=== PATIENT | female | born 1980 | race Caucasian/White ===

== ENCOUNTER 2022-06-20 13:44 | Outpatient (CLI) | payer BC, SELFPAY ==
--- NOTE | 2022-06-20 13:45 | CRLHL7_ITS ---
For Patients: As a result of the Century Cures Act, medical imaging exams and procedure reports are released immediately into your electronic medical record. You may view this report before your referring provider. If you have questions, please contact your health care provider. INDICATION: Low back pain. COMPARISON: None. TECHNIQUE: Sagittal T1, T2, and STIR sequences. Axial T1 and T2 weighted sequences. FINDINGS: Trace degenerative retrolisthesis of L4 on L5 measures approximately 4 mm. Otherwise, normal alignment. No fractures. No vertebral body loss of height. No evidence injury. No suspicious osseous lesions. Normal conus terminates at L1. T12-L1 L1-2 L2-3: No spinal canal or neural foraminal narrowing. L3-4: Mild annular bulge. No narrowing of spinal canal. No neural foraminal narrowing. L4-5: Grade 1 retrolisthesis. Disc degeneration and posterior disc herniation. No narrowing of spinal canal. No neural foraminal narrowing. L5-S1: No narrowing of spinal canal. No impingement of the traversing S1 nerve roots. No neural foraminal narrowing. Normal visualized SI joints. Normal paraspinal soft tissues. IMPRESSION: 1. Trace degenerative retrolisthesis of L4 on L5. Otherwise normal alignment. No fractures 2. Lumbar spondylosis. 3. At L4-5, grade 1 retrolisthesis. Disc degeneration and posterior disc herniation. No narrowing of the spinal canal. No neural foraminal narrowing. 4. No spinal canal or neural foraminal narrowing at the remaining levels Dictated by Elieser Estevez MD @ 06/21/2022 10:15:07 AM (Electronically Signed)
== END 2022-06-20 13:45 | disposition home or self-care (01) ==
PROVIDERS: PCP Family Medicine; Visit Provider Family Medicine
DX: M54.50 Low back pain, unspecified (principal); M47.816 Spondylosis without myelopathy or radiculopathy, lumbar region; M51.36 Other intervertebral disc degeneration, lumbar region
CPT/HCPCS: 72148

== ENCOUNTER 2022-08-20 12:27 | Outpatient (CLI) | payer BC, SELFPAY ==
[2022-08-20 14:09] LABS: Vitamin D 25 Hydroxy* 51 ng/mL (30-80)
== END 2022-08-20 12:28 | disposition home or self-care (01) ==
PROVIDERS: PCP Family Medicine; Visit Provider Registered Nurse
DX: Z01.419 Encounter for gynecological examination (general) (routine) without abnormal findings (principal); R53.83 Other fatigue; E03.9 Hypothyroidism, unspecified
CPT/HCPCS: 82306; 84443

== ENCOUNTER 2022-11-27 12:22 | Outpatient (CLI) | payer BC, SELFPAY ==
--- OUTSIDE RECORDS SUMMARY | 2022-11-27 12:24 | XMS_ITS ---
:1980 Author Support Name Relationship Address Phone LUIS SIMMONS Unavailable [address] [phone] [place] [address] yayo simmons Unavailable [address] [phone] [place] [address] PROBLEMS Type Condition ICD9-CM Code ZBP16-EV Onset Condition SNOMED Code Code Dates Status Problem History of anemia Z86.2 Active 27 7657200 Problem DDD (degenerative M51.36 Active 77 929984 disc disease), lumbar Problem Retrolisthesis of M43.10 Active 20 0103409 vertebrae Problem Stress F43.9 Active 28306439 Problem Vitamin D E55.9 Active 16312936 deficiency Problem Lumbar spondylosis M47.816 Active 2 35063744 Problem Hypothyroid E03.9 Active 11151982 Problem Hypothyroidism, E03.9 Active unspecified type Problem Chronic fatigue R53.82 Active 5270 2002 ALLERGIES Substance Reaction Event Type Date Status sulfa drugs Unknown Non Drug Allergy Nov, Active ENCOUNTERS Encounter Location Date Diagnosis [facility] [place] [address] [facility] Nov, Ilioti bial band syndrome of right [address] [place] [address] side M7 6.31 and DDD (degenerative disc disease), l umbar M51.36 [facility] [place] [address] [facility] Oct, [address] [place] [address] [facility] [place] [address] [facility] Sep, [address] [place] [address] [facility] [place] [address] [facility] Sep, Chroni c fatigue R53.82 ; [address] [place] [address] Hypothy roidism, unspecified type E03.9 ; Arthralg ia, unspecified joint M25.50 ; S tress F43.9 ; Vitamin D defici ency E55.9 and History of anemi a Z86.2 [facility] [place] [address] [facility] Sep, Hypoth yroid E03.9 [address] [place] [address] [facility] [place] [address] [facility] Sep, Ilioti bial band syndrome of right [address] [place] [address] side M7 6.31 [facility] [place] [address] [facility] Sep, DDD (d egenerative disc disease), [address] [place] [address] lumbar M51.36 and Iliotibial band syndrome of righ t side M76.31 [facility] [place] [address] [facility] Jul, [address] [place] [address] [facility] [place] [address] [facility] Jul, [address] [place] [address] [facility] [place] [address] [facility] Jul, [address] [place] [address] [facility] [place] [address] [facility] Jul, [address] [place] [address] [facility] [place] [address] [facility] Jul, [address] [place] [address] [facility] [place] [address] [facility] Jul, [address] [place] [address] [facility] [place] [address] [facility] Jul, DDD (d egenerative disc disease), [address] [place] [address] lumbar M51.36 ; Lumbar spondylosis M47. 816 and Retrolisthesis o f vertebrae M43.10 [facility] [place] [address] [facility] Jul, DDD (d egenerative disc disease), [address] [place] [address] lumbar M51.36 [facility] [place] [address] [facility] Jul, [address] [place] [address] [facility] [place] [address] [facility] Jul, DDD (d egenerative disc disease), [address] [place] [address] lumbar M51.36 and Post procedure discomfort G89.1 [address] [facility] [place] [address] [facility] Jul, [address] [place] [address] [facility] [place] [address] [facility] [address] [facility] Jul, Retrol isthesis of vertebrae [address] [place] [address] M43.10 ; Lumbar spondylosis M47.816 and DDD (degenerative disc disease), l umbar M51.36 [facility] [place] [address] [facility] Jul, [address] [place] [address] [facility] [place] [address] [facility] [address] [facility] Jun, [address] [place] [address] [facility] [place] [address] [facility] [address] [facility] Jun, [address] [place] [address] [facility] [place] [address] [facility] Jun, [address] [place] [address] [facility] [place] [address] [facility] Jun, Lumbar pain M54.50 [address] [place] [address] IMMUNIZATIONS Vaccine Route Administration Date Status IM Thyroid Boost IM Intramuscular Sep 13, 2022 Administered SOCIAL HISTORY Never Assessed REASON FOR REFERRAL Reason please evaluate and treat pa tients low back pain Referral Organization [facility] Referring Provider First Name PILO Referring Provider Last Name JOSE Referring Provider Specialty Anesthesiology Referring Provider Referring Provider email [email or web address] Referred Provider Physical Therapy,Any Clinic Referred Provider Specialty Physical Therapist FUNCTIONAL STATUS PLAN OF CARE Activity Details Follow Up prn Reason:prp or trigger po int Referral please evaluate and treat pa tients low back pain, Any Clinic Physical Therapy Future Test DHEA SULFATE 20220916 Future Test VITAMIN B12 20220916 Future Test CORTISOL, TOTAL 20220916 Future Test VITAMIN B6 20220916 Future Test TESTOSTERONE,FR(DIALYSIS) AN D TOTAL(LC/MS/MS) 20220916 Future Test T3 REVERSE, LC/MS/MS 20220905 2 Future Test T3, FREE 20220916 Future Test IODINE, SERUM/PLASMA 20220905 2 Future Test T4, FREE 20220916 Future Test IRON, TIBC AND FERRITIN PANE L 20220916 Future Test THYROGLOBULIN ANTIBODIES Future Test THYROID PEROXIDASE ANTIBODIE S 20220916 VITAL SIGNS Temperature 97.5 degrees Fahrenheit 2022-09-13 Height 65 in 2022-09-13 Weight 185 lbs 2022-09-13 BMI 30.78 kg/m2 2022-09-13 Blood pressure systolic 120 mm Hg 2022-09-13 Blood pressure diastolic 80 mm Hg 2022-09-13 MEDICATIONS Medication Instructions Dosage Frequency Start End Duration Statu s Date Date Vitamin D3 125 as directed Activ e MCG (5000 UT) [place] 3 1000 MG Orally Once a 1 capsule 24h Active day BPC 157 500mcg Orally Daily 1 Capsule 24h Ac tive Glutamine 500 as directed Active MG Valium 10 MG Orally 1 hour 1-2 tablets Jul, 1 days N ot-Takin prior to 2021 g procedure ReservaMax Active Thyroid by mouth daily 4 caps 24h Active Nutrients 1 HYDROcodone-Omid Orally one hour 1 tablet Jul, 5 days Not-Takin taminophen prior to 2021 g 5-325 MG procedure and 1-2 tablets as needed every 6 hours for moderate pain Glucosamine Active Chondr Complex Doxycycline Orally Twice a 1 capsule 12h Jul, 1 days Not -Takin Monohydrate 100 day 2021 g MG Iron 325 (65 Orally Once a 1 tablet 24h Acti ve Fe) MG day Mirena (52 MG) as directed Activ e 20 MCG/DAY PROCEDURES Procedure Date Ordered Result Body Site LUMB ORTHOS SAGIT CTRL ANT POST PNL Jul 15, 2022 Inj trigger point 1/2 muscl Sep 13, 2022 Inj trigger point 1/2 muscl Sep 06, 2022 RESULTS No Results REASON FOR VISIT Insurance Providers [facility] Member Patient Patient Patient Patient Patient Subscriber Subscriber Subscriber Group Insurance Plan Plan Plan Plan ID Relationship Address Phone Name Date of ID Name Date of No Type Insurance Insurance Insurance Coverage to Subscriber Address Phone Name Dates BCBS [address] [employer] self LUIS [id number] [facility] [address] [facility] [id number] MEDICAL (GENERAL) HISTORY Type Description Date Medical History chronic low back pain Medical History hypothyroid
--- NOTE | 2022-11-27 12:30 | CRLHL7_ITS ---
For Patients: As a result of the Century Cures Act, medical imaging exams and procedure reports are released immediately into your electronic medical record. You may view this report before your referring provider. If you have questions, please contact your health care provider. BILATERAL SCREENING MAMMOGRAM WITH COMPUTER-AIDED DETECTION AND TOMOSYNTHESIS TECHNIQUE: CC and MLO views were obtained. These mammographic images have been obtained using full-field digital technique. These mammographic images were interpreted with the benefit of computer-aided detection. Breast Tomosynthesis was used in this interpretation. COMPARISON FILM: Baseline. FINDINGS: The breasts are heterogeneously dense, which may obscure small masses IMPRESSION: There is no radiographic evidence for malignancy. ASSESSMENT: BI-RADS Category 1: Negative RECOMMENDATION: Routine screening mammogram in 1 year. A lay language report of this examination will be provided to the patient. Cuco Martinez M.D. Diagnostic Radiologist [email or web address] PARTH/reyes / be/Dictated by: Cuco Martinez MD @ 11/27/2022 12:57:00 PM (Electronically Signed)
== END 2022-11-27 12:23 | disposition home or self-care (01) ==
LOC: MAMMO 12:22
PROVIDERS: PCP Family Medicine; Visit Provider Registered Nurse
DX: Z12.31 Encounter for screening mammogram for malignant neoplasm of breast (principal); R92.2 Inconclusive mammogram
CPT/HCPCS: 77063; 77067

== ENCOUNTER 2023-05-06 15:54 | Outpatient (CLI) | payer BC, SELFPAY ==
[2023-05-06 21:43] LABS: Chlamydia DNA Amplified* NOT DETECTED (No Detected); GC DNA Amplified* NOT DETECTED (No Detected)
== END 2023-05-06 15:55 | disposition home or self-care (01) ==
PROVIDERS: PCP Family Medicine; Visit Provider Registered Nurse
DX: R10.2 Pelvic and perineal pain (principal)
CPT/HCPCS: 87086; 87491; 87591

== ENCOUNTER 2023-05-20 08:02 | Outpatient (CLI) | payer BC, SELFPAY ==
--- OUTSIDE RECORDS SUMMARY | 2023-05-20 08:05 | XMS_ITS | Patient Health Record ---
Author Name Unknown Organization [facility] Address [address] [place] [address] Care Team Providers Care Care Specialist Name Role Phone ZOE ROBLES Unavailable [phone] LAMBERTODOMINIC Unavailable [phone] ALLERGIES Allergen (clinical drug ingredient) Drug/Non Drug Allergy documented on EMR Reaction Allergy Type Onset Date Status Substance with sulfonamide structure and antibacterial mechanism of action (substance) sulfa drugs (uncoded) Unknown Allergy Active REASON FOR REFERRAL Reason please evaluate and treat patients low back pain Diagnosis 1 DDD (degenerative di sc disease), lumbar (M51.36) Diagnosis 2 Retrolisthesis of ve rtebrae (M43.10) Diagnosis 3 Lumbar spondylosis ( M47.816) Referral Organization [facility] Referring Provider First Name ZOE Referring Provider Last Name JOSE Referring Provider Speciality Anesthesio logy Referred Provider Physical Therapy, An y Clinic Referred Provider Specialty Physical The rapist General Notes patient has had a re generative PRP, platelet rich plasma, treatment. Please follow the attached protocol and contact the clinic with any questions/concerns Referral Priority Routine MEDICATIONS Medication SIG (Take, Route, Frequency, Duration) Notes Start Date End Date Status Thyroid Nutrients 1 4 caps by mouth daily Active Iron 325 (65 Fe) MG 1 tablet Orally Once a day Active Vitamin D3 125 MCG (5000 UT) as directed Orally Active [place] 3 1000 MG 1 capsule Orally Onc e a day Active Mirena (52 MG) 20 MCG/DAY as directed Intrauterine Act lady HYDROcodone-Acetaminophe n 5-325 MG 1 tablet Orally one hour prior to procedure and 1-2 tablets as needed every 6 hours for moderate pain for 5 days 07/09/2022 Not-Jamie ing Glucosamine Chondr Complex Active Valium 10 MG 1-2 tablets Orally 1 hour prior to procedure for 1 days 07/09/2022 Not-Taking BPC 157 500mcg 1 Capsule Orally Daily Active Doxycycline Monohydrate 100 MG 1 capsule Orally Twice a day for 1 days 07/09/2022 Not-Taking Glutamine 500 MG as directed Orally Active ReservaMax Active SOCIAL HISTORY Sex Assigned At : Social History Observation Description Sex Assigned At Unknown PROBLEMS Problem Type ICD Code Onset Dates Problem Status W/U Status Risk SNOMED Code Notes Problem Hypothyroid (E03.9) Active confirmed Hypothyroid (81701996) Problem Vitamin D deficiency (E55.9) Active confirmed 71135137 Problem History of anemia (Z86.2) Active confirmed 480255280 Problem Lumbar spondylosis (M47.816) Active confirmed 678855271 Problem Stress (F43.9) Active confirmed 7485275 0 Problem Chronic fatigue (R53.82) Active confirmed 23996480 Problem DDD (degenerative disc disease), lumbar (M51.36) Active confirmed 68426647 Problem Hypothyroidism, unspecified type (E03.9) Active confirmed 96749740 Problem Retrolisthesis of vertebrae (M43.10) Active confirmed 241750242 VITAL SIGNS Temperature 97.5 degrees Fahrenheit 09/13/2022 Blood pressure diastolic 80 mm Hg 09/13/2022 Height 65 in 09/13/2022 Blood pressure systolic 120 mm Hg 09/13/2022 Weight 185 lbs 09/13/2022 BMI 30.78 kg/m2 09/13/2022 Encounters Encounter Location Date Provider Diagnosis [facility] [address] [place] [address] [place] [address] 07/01/2022 ZOE ROBLES Lumbar pain M54.50 [facility] [address] [place] [address] [place] [address] 07/03/2022 ZOE Shay [address] [place] [address] [place] [address] 07/03/2022 ZOE Shay [address] [place] [address] [place] [address] 07/05/2022 ZOE Shay [address] [address] [place] [address] 07/08/2022 ZOEMARIA ISABEL ROBLES [facility] [place] [address] [facility] [address] [place] [address] 07/08/2022 ZOE ROBLES Retrolisthesis of vertebrae M43.10 ; Lumbar spondylosis M47.816 and DDD (degenerative disc disease), lumbar M51.36 [facility] [place] [address] [facility] [address] [place] [address] 07/09/2022 ZOE ROBLES [facility] [place] [address] [facility] [address] [place] [address] 07/09/2022 ZOE ROBLES DDD (degenerative di sc disease), lumbar M51.36 and Post procedure discomfort G89.18 [facility] [place] [address] [facility] [address] [place] [address] 07/10/2022 ZOE ROBLES [facility] [place] [address] [facility] [address] [place] [address] 07/15/2022 ZOE ROBLES DDD (degenerative di sc disease), lumbar M51.36 [facility] [place] [address] [facility] [address] [place] [address] 07/15/2022 ZOE ROBLES DDD (degenerative di sc disease), lumbar M51.36 ; Lumbar spondylosis M47.816 and Retrolisthesis of vertebrae M43.10 [facility] [place] [address] [facility] [address] [place] [address] 07/16/2022 ZOE ROBLES [facility] [place] [address] [facility] [address] [place] [address] 07/17/2022 ZOE ROBLES [facility] [place] [address] [facility] [address] [place] [address] 07/17/2022 ZOE ROBLES [facility] [place] [address] [facility] [address] [place] [address] 07/17/2022 ZOE ROBLES [facility] [place] [address] [facility] [address] [place] [address] 07/30/2022 ZOE ROBLES [facility] [place] [address] [facility] [address] [place] [address] 07/30/2022 [facility] [address] [place] [address] 09/06/2022 ZOE ROBLES DDD (degenerative di sc disease), lumbar M51.36 and Iliotibial band syndrome of right side M76.31 [facility] [place] [address] [place] [address] 09/13/2022 ZOE ROBLES Iliotibial band synd keegan of right side M76.31 [facility] [address] [place] [address] 09/13/2022 ZOE ROBLES Hypothyroid E03.9 [facility] [address] [place] [address] 09/16/2022 DOMINIC LAMBERTO Chronic fatigue R53. 82 ; Hypothyroidism, unspecified type E03.9 ; Arthralgia, unspecified joint M25.50 ; Stress F43.9 ; Vitamin D deficiency E55.9 and History of anemia Z86.2 [facility] [address] [place] [address] 10/04/2022 DOMINIC LAMBERTO [facility] [address] [place] [address] 10/15/2022 ZOE ROBLES [facility] [place] [address] [place] [address] 11/13/2022 ZOE ROBLES Iliotibial band synd keegan of right side M76.31 and DDD (degenerative disc disease), lumbar M51.36 ASSESSMENTS Encounter Date Diagnosis Assessment Notes Treatment Notes Treatment Clinical Notes 09/13/2022 Hypothyroid (ICD-10 - E03.9) Reccommended she get intramuscular injection of Mineral Blend 2ml, Betty Complex 1ml, Lidocaine .25ml, Total injection 3.25ml 09/16/2022 Chronic fatigue (ICD-10 - R53.82) 09/16/2022 Hypothyroidism, unspecified type (ICD-10 - E03.9) She is on Thyroid nut and received Thyroid boost on 09/13/2022. We will check labs for autoimmune thyroid disease. 07/01/2022 Lumbar pain (ICD-10 - M54.50) - Discussed regenerative therapy options, specifically lumbar PRP and PL epidural, which is recommended to help with pain, improve nerve health, increase motion and improve functional movements. Procedure, recovery, and care home outcomes were reviewed. Informational handouts were provided. Discussed Stem Cell therapy briefly as well with patient. - Advised the use of appropriate regenerative supplements based on patient's needs. An educational information sheet was provided to the patient. - Discussed candidacy rating with patient today explaining what rating entails and how it is currently being used. Discussed poor, fair, vs good candidate for PRP/SC. Based on current rating scale, patient is a good candidate for PRP. All questions were answered. - Patient advised to avoid high dose cortisone injections to the spine as this can deteriorate the surrounding tissue and cartilage along with increasing their risk of a vertebral fracture. - Patient was educated and given an educational handout regarding Peptides. Patient was recommended to start taking BPC-157 to aid in muscle, tendons, cartilage, and bone growth. As well as in gut healing and neuromuscular improvements. Plan: Possible regen in the near future for lumbar spine 09/06/2022 Iliotibial band syndrome of right side (ICD-10 - M76.31) Treatment options discussed with patient and all of their questions were answered at this time. Based on review of patient's history, exam and discussion with the patient, trigger point injections are recommended for myofascial pain and dysfunction 09/06/2022 DDD (degenerative disc disease), lumbar (ICD-10 - M51.36) - Can start to try out harder impact cycling now. Can also try running as well. - Recommending we wait until the 12 week jelani to decide if another PRP treatment is needed 09/13/2022 Iliotibial band syndrome of right side (ICD-10 - M76.31) Treatment options discussed with the patient and all of the patient's questions were answered at this time. Based on review of the patients response to previous treatments, exam and discussion with the patient trigger point injections are recommended for myofascial pain and dysfunction 11/13/2022 Iliotibial band syndrome of right side (ICD-10 - M76.31) continue with stretching and icing. she can also come in for trigger point injection 07/15/2022 Lumbar spondylosis (ICD-10 - M47.816) 07/15/2022 DDD (degenerative disc disease), lumbar (ICD-10 - M51.36) - Patient was issued a referral to physical therapy for post PRP rehab. The option to have physical therapy at another clinic was discussed today and the patient elected to do physical therapy at another clinic. - Patient was given a post Regenerative therapy treatment Protocol to follow and gone over with patient as well. All questions were answered today. - Patient was prescribed a Lumbar Horizon Brace This orthosis is required for the following reasons: a. To reduce pain by restricting mobility of the trunk. b. To facilitate healing following an injury to the spine or related soft tissues. c. To facilitate healing following a procedure on the spine or related soft tissues. d. To support weak spinal muscles and/or deformed spine. Patient was dispensed this brace today. Patient denies ever being dispensed one in the past for the lumbar pain. Patient was taught how to put on the brace and provided with instructions for the brace. Patient was instructed to call if they have any questions about their brace. - A timeout was performed by Zoe Robles MD and Stacy Cherry LPN prior to the start of patient's procedure today. Confirmed patient's first and last name, date of , procedure, and procedure site. Patient did not have any questions at this time 07/15/2022 DDD (degenerative disc disease), lumbar (ICD-10 - M51.36) Patient's blood was processed today using an [employer] kit, Lot #:[id number]. During the processing, the patient produced an average of 3cc of plasma per 8.5mL vacutainer vial after centrifuge Blood draw and lab processing was completed by Stacy Cherry LPN 07/09/2022 Post procedure discomfort (ICD-10 - G89.18) 07/09/2022 DDD (degenerative disc disease), lumbar (ICD-10 - M51.36) 07/08/2022 Lumbar spondylosis (ICD-10 - M47.816) 07/08/2022 Retrolisthesis of vertebrae (ICD-10 - M43.10) 07/08/2022 DDD (degenerative disc disease), lumbar (ICD-10 - M51.36) The patient's most recent MRI from a previous visit were reviewed with them today Discussed regenerative therapy options. The patient was educated on Prolotherapy, PRP, and Stem cell treatments. Most specifically discussed differences between PRP and stem cell: candidacy rating, procedure, recovery, and care home outcomes. Based on patient''s candidacy rating and symptoms recommended PRP as optimal treatment. Patient plans to schedule PRP treatment in the near future for lumbar PRP. Furthermore, the patient was educated on the following B. Avoiding any antiinflammatory medications. C. Medications that can be taken prior to and after the procedure. Patient recommended to be practicing prior to their procedure. Having a peg driver post procedure. H. The use of physical therapy starting a week post procedure. 07/15/2022 Retrolisthesis of vertebrae (ICD-10 - M43.10) 11/13/2022 DDD (degenerative disc disease), lumbar (ICD-10 - M51.36) I recommend that the patient can do more activity as tolerated. she can slowly increase the intensity of the workout. If she has more pain with increasing activity we can do another PRP 09/16/2022 Arthralgia, unspecified joint (ICD-10 - M25.50) She had PRP done by Dr. Robles. We will check labs. 09/16/2022 Stress (ICD-10 - F43.9) 09/16/2022 Vitamin D deficiency (ICD-10 - E55.9) She is on vitamin D 5,000 IU daily. We will check vitamin D level. 09/16/2022 History of anemia (ICD-10 - Z86.2) 07/01/2022 Other - Patient has mildly elevated blood pressure. Patient will continue to monitor. - (3:00pm- 3:35pm) 35 minutes was spent face to face with the patient today where I performed the examination and reviewed the treatment options listed above. - 5 minutes were spent in charting and documenting the patients visit following todays appointment. - Documentation was performed by Stacy Cherry LPN under the direction and supervision of Zoe Robles MD 07/08/2022 Other Permission verbally granted by patient for Phone/TeleHealth visit today Start:3:15 stop: 3:29 07/15/2022 Other 07/15/2022 Other Patient's blood was processed today using an [employer] kit, Lot #: [id number]. During the processing, the patient produced an average of 3cc of plasma per 8.5mL vacutainer vial after centrifuge Brace Fitting was done today by Stacy Cherry LPN 09/06/2022 Other Documentation w as performed by Stacy Cherry LPN under the direction and supervision of Zoe Robles MD 09/13/2022 Other Tyroid Boost intramuscular injection was performed today. Orders were obtained previously from patients provider. Consent was obtained. Allergies and medications were reviewed. No noted contraindications are present. Medications were double checked prior to injection and drawn up under sterile technique. IM was given without complications using sterile technique. Patient tolerated injection without complications. Please see scanned document for further information 09/16/2022 Other -The performing lab company may be billing your insurance for your lab services. Any statements received from them would need to be discussed with or paid to them. Labs will be drawn at today's appointment. To schedule a follow up appointment in 2 weeks for a lab review with Dominic Petersen RN-WILMAN For today's appointment, 5 minutes was spent reviewing the chart. 35 minutes was spent reviewing past and present symptoms, previous testing, treatment and formulated plan to assess hormonal balance, inflammatory and autoimmune markers, and discuss lifestyle changes to progress toward health goals. 9 minutes was spent charting. This visit was virtually scribed by Kristina CHAUHAN 11/13/2022 Other Permission verbally granted by patient for Phone/TeleHealth visit today Start:1:50 Stop:2:00 PLAN OF TREATMENT Future Test Test Name Order Date IRON, TIBC AND FERRITIN PANEL 09/16/2022 THYROGLOBULIN ANTIBODIES 09/16/2022 THYROID PEROXIDASE ANTIBODIES 09/16/2022 DHEA SULFATE 09/16/2022 VITAMIN B12 09/16/2022 T4, FREE 09/16/2022 CORTISOL, TOTAL 09/16/2022 T3, FREE 09/16/2022 IODINE, SERUM/PLASMA 09/16/2022 VITAMIN B6 09/16/2022 TESTOSTERONE,FR(DIALYSIS) AND TOTAL(LC/M S/MS) 09/16/2022 T3 REVERSE, LC/MS/MS 09/16/2022 Insurance Providers Payer Name Payer Address Payer Phone Subscriber Number Group Number Insured Name Patient Relationship to Insured Coverage Start Date Coverage End Date [employer] [address] [address] [place], [place] [id number] LUIS SIMMONS Self - patient is the insured 1 MEDICATIONS ADMINISTERED Medication Instructions Date of Administration Dosage Notes IM Thyroid Boost 09/13/2022 3.25 mg Reccomme nded she get intramuscular injection of Mineral Blend 2ml, Betty Complex 1ml, Lidocaine .25ml, Total injection 3.25ml MEDICAL (GENERAL) HISTORY Medical History History ICD Code chronic low back pain hypothyroid
--- NOTE | 2023-05-20 08:15 | CRLHL7_ITS ---
For Patients: As a result of the Century Cures Act, medical imaging exams and procedure reports are released immediately into your electronic medical record. You may view this report before your referring provider. If you have questions, please contact your health care provider. CLINICAL HISTORY: Pelvic pain Comparison 06/30/2015 TECHNIQUE: 2D hancock scale ultrasound. In addition color Doppler and spectral Doppler analysis was performed of the pelvis using a transabdominal and transvaginal approach. FINDINGS: On transvaginal imaging, the myometrium has a mildly heterogeneous echotexture. No uterine fibroid. The uterus measures 8.1 x 4.1 x 6.2 cm. The endometrium measures 3 millimeters. Intrauterine device is present within the endometrial canal. The right ovary measures 3.7 x 1.9 x 2.5 cm in size and the left ovary measures 3.3 x 1.8 x 1.9 cm. The ovaries demonstrate normal arterial and venous blood flow on color Doppler and spectral Doppler analysis. Dominant follicle right ovary measuring 1.8 cm. There are no suspicious fluid collections within the cul-de-sac. IMPRESSION: Normal position of the IUD within the endometrial canal. Normal ovaries. No ovarian torsion or excess pelvic free fluid. No uterine fibroid. Dictated by Cuco Martinez MD @ 05/20/2023 9:19:52 AM (Electronically Signed)
== END 2023-05-20 08:03 | disposition home or self-care (01) ==
LOC: US 08:03
PROVIDERS: PCP Family Medicine; Visit Provider Registered Nurse
DX: R10.2 Pelvic and perineal pain (principal)
CPT/HCPCS: 76830; 76856; 93976

== ENCOUNTER 2023-08-26 14:09 | Outpatient (CLI) | payer BC, SELFPAY | END 2023-08-26 14:10 | disposition home or self-care (01) | PROVIDERS: PCP Family Medicine; Visit Provider Registered Nurse | DX: Z13.220 Encounter for screening for lipoid disorders (principal); Z13.1 Encounter for screening for diabetes mellitus; Z13.29 Encounter for screening for other suspected endocrine disorder | CPT/HCPCS: 80061; 82947; 84443 ==

== ENCOUNTER 2023-10-02 14:49 | Outpatient (CLI) | payer BC, SELFPAY ==
[2023-10-06 16:12] LABS: HSV 1 Subtype by PCR Not Detected; HSV 2 Subtype by PCR Not Detected; Herpes Simplex Subtype Source Not Provided
== END 2023-10-02 14:50 | disposition home or self-care (01) ==
PROVIDERS: PCP Family Medicine; Visit Provider Registered Nurse
DX: L89.309 Pressure ulcer of unspecified buttock, unspecified stage (principal); Z11.3 Encounter for screening for infections with a predominantly sexual mode of transmission
CPT/HCPCS: 87070; 87529

== ENCOUNTER 2024-08-30 14:06 | Outpatient (CLI) | payer BC, SELFPAY ==
--- NOTE | 2024-08-30 14:00 | CRLHL7_ITS ---
For Patients: As a result of the Century Cures Act, medical imaging exams and procedure reports are released immediately into your electronic medical record. You may view this report before your referring provider. If you have questions, please contact your health care provider. BILATERAL DIGITAL SCREENING MAMMOGRAM WITH COMPUTER-AIDED DETECTION AND TOMOSYNTHESIS CLINICAL HISTORY: Routine screening exam. COMPARISON: 11/27/2022. TECHNIQUE: Digital mammogram in CC and MLO projections including computer-aided detection (CAD). Tomosynthesis was used in this interpretation. BREAST COMPOSITION: The breasts are heterogeneously dense, which may obscure small masses. FINDINGS: RIGHT Breast: Focal nodular density retroareolar plane 2 cm from the nipple. LEFT Breast: No suspicious findings. IMPRESSION: RIGHT breast asymmetry/mass. RECOMMENDATIONS: Additional mammographic views of the RIGHT breast including 3D spot compression CC/MLO. RIGHT breast ultrasound may also be required. The [facility] will contact the patient. A lay language report of this examination will be provided to the patient. BI-RADS Category 0: Incomplete: Need Additional Imaging Evaluation Dictated by Cuco Martinez MD @ 08/31/2024 9:04:57 AM jj/Dictated by: Cuco Martinez MD @ 08/31/2024 9:05:00 AM (Electronically Signed)
--- OUTSIDE RECORDS SUMMARY | 2024-08-30 14:14 | XMS_ITS | Clinical Summary ---
Author Organization [employer] [facility] Address [place], [place] [address] Care Team Providers Care Epitaxial Reactor Operator Name Role Phone Soraida Jaeger DO Primary Care Provider Allergies Active Allergy Reactions Criticality Noted Date Comments Sulfa (Sulfonamide Antibiotics) Syncope 09/06 Medications No known medications Active Problems Problem Noted Date Diagnosed Date Menstrual migraine 12/22/2008 Immunizations Name Administration Dates Next Due Influenza, IIV4 07/12/2016 Tdap 11/06/2007 Family History Medical History Relation Name Comments Cancer-colon Maternal Grandfather age 72 Cancer-breast Mother pre-menopause Relation Name Status Comments Father Alive Maternal Grandfather Alive Maternal Grandmother Alive Mother Alive Paternal Grandfather Paternal Grandmother Alive Sister 1 Alive Sister 2 Alive Social History Tobacco Use Types Packs/Day Years Used Date Smoking Tobacco: Never Tobacco Cessation:Counseling Given: Yes Alcohol Use Standard Drinks/Week Comments Yes 0 (1 standard drink = 0.6 oz pur e alcohol) occasional Sex and Gender Information Value Date Recorded Sex Assigned at Not on file Gender Identity Not on file Sexual Orientation Not on file Obstetrics History Last Filed Vital Signs Vital Sign Reading Time Taken Comments Blood Pressure 106/68 11/11/2016 9:07 AM POWER BARKER Pulse 59 11/11/2016 9:07 AM POWER BARKER Temperature 36.7 C (98.1 F) 10/03/2008 2:00 PM POWER BARKER Respiratory Rate - - Oxygen Saturation - - Inhaled Oxygen Concentration - - Weight 87.5 kg (193 lb) 11/11/2016 9:07 AM POWER BARKER Height 165.1 cm (5' 5) 11/11/2016 9:07 AM POWER BARKER Body Mass Index 32.12 11/11/2016 9:07 AM POWER BARKER Plan of Treatment Health Maintenance Due Date Last Done Comments HIV for age 15-65 1996 Hepatitis C screening for age 18-79 12/15/1999 Tetanus booster 11/06/2017 11/06/2007 BMI (ht and wt on same day) for age 18+ 11/11/2017 11/11/2016 Depression screening for age 12+ 11/11/2017 11/11/2016 COVID-19 vaccine series (2023- season) 2024 Influenza for age 9-49 06/06/2024 07/12/2016 Pap test for age 21-65 08/26/2026 , 08/26/2023, 10/09/2018, Additional history exists Tdap Completed 11/06/2007 Pneumococcal series for age 6-64 Aged Out No longer eligible based on patient's age to complete this topic Procedures Procedure Name Priority Date/Time Associated Diagnosis Comments HPV HIGH RISK Routine 08/26/2023 2:00 PM POWER BARKER from Last 3 Months or Most Recently Relevant to Health Maintenance Results * HPV HIGH RISK (08/26/2023 2:00 PM POWER BARKER) TYPE 16 Negative Negative 09/10/2023 1:34 PM POWER BARKER [facility] TYPE 18 Negative Negative 09/10/2023 1:34 PM POWER BARKER [facility] OTHER HIGH RISK TYPES Negative Negative 09/10/2023 1:34 PM POWER BARKER [facility] Other (Cervical) 08/26/2023 2:00 PM POWER BARKER 08/29/2023 12:15 PM POWER BARKER Narrative [facility] - 09/10/2023 1:34 PM POWER BARKER Corrected Collection Date Only HPV types 16, 18, 31, 33, 35, 39, 45, 51, 52, 56, 58, 59, 66 and 68 DNA were undetectable or below the pre-set threshold. Methodology: Radha Safia 4800 HPV Test Isabela Rodriguez NP [facility] [address] [place] [address], [place] from Last 3 Months or Most Recently Relevant to Health Maintenance Care Teams Epitaxial Reactor Operator Relationship Specialty Start Date End Date Soraida Jaeger DO [address] [place] [address] PCP - General Family Practice 11/04/16
--- OUTSIDE RECORDS SUMMARY | 2024-08-30 14:14 | XMS_ITS ---
Author Organization [facility] Address [address] [place] [address] Care Team Providers Care Plastic Bubble Packer Name Role Phone PILO GARCIA Unavailable [phone] LORENZA KEMP [phone] Encounters Encounter Location Date Provider Diagnosis [facility] [address] [place] [address] 05/24/2024 LORENZA KEMP Plan Of Treatment No Information Progress Notes * LUIS SIMMONSEDOB:[birth year] (43 yo F)Acc No.[id number]:05/24/2024 Patient: LUIS ANTOINE :1980 A ge:43 Y S ex:Female Address:[address] [place] [address] * true * Date: Generated for Donavan monsivais/Eufemia/eTransmitting on: 10/30/2023 02:13 PM ELECTROMECHANICAL INSPECTOR
--- OUTSIDE RECORDS SUMMARY | 2024-08-30 14:14 | XMS_ITS ---
Author Organization [facility] Address [address] [place] [address] Care Team Providers Care Circuit Judge Name Role Phone PILO GARCIA Unavailable [phone] LORENZA KEMP [phone] REASON FOR VISIT Sciatica Encounters Encounter Location Date Provider Diagnosis [facility] [address] [place] [place] [address] 05/31/2024 LORENZA KEMP Plan Of Treatment No Information Progress Notes * LUIS SIMMONSEDOB:[birth year] (43 yo F)Acc No.[id number]:05/31/2024 Patient: LUIS ANTOINE :1980 A ge:43 Y S ex:Female Address:[address] [place] [address] * true * Date: Generated for Donavan monsivais/Eufemia/eTransmitting on: 10/30/2023 02:13 PM COLOR TESTER
--- OUTSIDE RECORDS SUMMARY | 2024-08-30 14:14 | XMS_ITS | Patient Health Record ---
Author Organization [facility] [employer] [address] Address [address] [place] [address] Care Team Providers Care Chucking Machine Set Up Operator Tool Name Role Phone PILO GARCIA Unavailable [phone] LORENZA GARCIA Unavailable [phone] GOMEZ RODRIGUEZ Unavailable [phone] Allergies Allergen (clinical drug ingredient) Drug/Non Drug Allergy documented on EMR Reaction Allergy Type Onset Date Status Substance with sulfonamide structure and antibacterial mechanism of action (substance) sulfa drugs (uncoded) Unknown Allergy Active Results Component Value Reference Range Notes MR SI Joints W/O Reviewed date:03/19/2024 12:17:04 PM Interpretation: Performing Lab: Notes/Report: Original Report EXAM: MR SI JOINTS WITHOUT CONTRAST 0.6T OPEN UPRIGHT CLINICAL INFORMATION: Bilateral low back and left hip pain for 5 weeks. TECHNICAL INFORMATION: T2 FSE sagittal , T1/STIR coronal oblique, and T1/STIR axial oblique thin sections through the sacrum and sacroiliac joints. COMPARISONS: No comparisons. INTERPRETATION: Sacrum/coccyx: Normal signal intensity within the sacrum and coccyx. No sacral insufficiency fracture or stress fracture and no osseous malignancy. No abnormalities within the sacral canal or sacral neural foramina. No abnormalities within the sacrococcygeal or intercoccygeal discs. No abnormalities within overlying soft tissues. Sacroiliac joints: Mild irregularities are seen within the anterior sacroiliac subchondral bone with mild sacroiliac subchondral sclerosis on the left. Small foci of sacroiliac subchondral marrow edema is visualized on the left on STIR axial image 14 and STIR coronal image 13. No associated osteophyte. L5-S1: Normal intervertebral disc and facet joints. No stenosis or impingement. L4-5: Moderate disc degeneration with a moderate-sized 5 mm broad-based central/left paracentral disc protrusion deforming the ventral dural sac and mildly encroaching on the traversing left L5 nerve root. Normal facet joints and patent neural foramina. Pelvic cavity: No abnormalities within the presacral space nor within the proximal piriformis muscles. No posterior pelvic cavity malignancy. CONCLUSION: 1. Irregularity of sacroiliac subchondral bone with subchondral sclerosis and subchondral marrow edema on the left which is nonspecific however consistent with early sacroiliitis on the left. 2. L4-5 disc degeneration with a moderate-sized 5 mm broad-based central/left paracentral disc herniation encroaching on the traversing left L5 nerve root. Read by: Nick Horne M.D. Reviewed and Electronically Signed by: Nick Horne M.D. [facility] [place], [place]:[facility] - Original Report EXAM: MR SI JOINTS W ITHOUT CONTRAST 0.6T OPEN UPRIGHT CLINICAL INFORMATION : Bilateral low back and left hip pain for 5 weeks. TECHNICAL INFORMATIO N: T2 FSE sagittal , T1/STIR coronal oblique, and T1/STIR axial oblique thin s ections through the sacrum and sacroiliac joints. COMPARISONS: No comparisons. INTERPRETATION: Sacr um/coccyx: Normal signal intensity within the sacrum and coccyx. No sacral in sufficiency fracture or stress fracture and no osseous malignancy. No abnor malities within the sacral canal or sacral neural foramina. No abnormalities wit hin the sacrococcygeal or intercoccygeal discs. No abnormalities within overlying soft tissues. Sacroiliac joints: M ild irregularities are seen within the anterior sacroiliac subchondral bone wit h mild sacroiliac subchondral sclerosis on the left. Small foci of sacroiliac s ubchondral marrow edema is visualized on the left on STIR axial image 14 and S TIR coronal image 13. No associated osteophyte. L5-S1: Normal interv ertebral disc and facet joints. No stenosis or impingement. L4-5: Moderate disc degeneration with a moderate-sized 5 mm broad-based central/left paracen tral disc protrusion deforming the ventral dural sac and mildly encroaching o n the traversing left L5 nerve root. Normal facet joints and patent neural foramina. Pelvic cavity: No ab normalities within the presacral space nor within the proximal piriformis muscles. No posterior pelvic cavity malignancy. CONCLUSION: 1. Irregularity of s acroiliac subchondral bone with subchondral sclerosis and subchondral marrow e fredy on the left which is nonspecific however consistent with early sacroilii tis on the left. 2. L4-5 disc degener ation with a moderate-sized 5 mm broad-based central/left paracentral disc her niation encroaching on the traversing left L5 nerve root. Read by: Nick Horne M.D. Reviewed and Electro nically Signed by: Nick Horne M.D. Reason For Referral Reason Evaluate and Treat f or Post Lumbar PRP Diagnosis 1 DDD (degenerative di sc disease), lumbar (M51.36) Diagnosis 2 Lumbar pain (M54.50) Referral Organization [facility] Referring Provider First Name LORENZA Referring Provider Last Name VIRIDIANA Referring Provider Speciality Physical M edicine and Rehabilitation Referred Provider Specialty Physical The rapist Referral Priority Routine Medications Medication SIG (Take, Route, Frequency, Duration) Notes Start Date End Date Status Mirena (52 MG) 20 MCG/DAY as directed Intrauterine Active Doxycycline Monohydrate 100 MG 1 capsule Orally 1 capsule po every 12 hours on the day of PRP procedure for 1 days 05/20/2024 Active Tilton 3 1000 MG 1 capsule Orally Onc e a day Active HYDROcodone-Acetaminophen 5-325 MG 1 tablet as needed Orally one hour prior to procedure and 1-2tablets as needed every 6 hours for moderate pain for 5 days 05/20/2024 Active Valium 5 MG 1 tablet as needed O rally 1 hour prior to procedure for 1 days 05/20/2024 Active BPC 157 Active Vitamin D3 125 MCG (5000 UT) as directed Orally Active Thyroid Nutrients 1 4 caps by mouth daily Active Social History Alcohol Screen (Audit-C) Question Answer Notes Did you have a drink contain ing alcohol in the past year? Yes How often did you have a dri nk containing alcohol in the past year? 2 to 4 times a month (2 points) How many drinks did you have on a typical day when you were drinking in the past year? 1 or 2 drinks (0 point) How often did you have 6 or more drinks on one occasion in the past year? Never (0 point) Points 2 Interpretation Negative Section Notes: , post-graduate educa tion, working at [employer] in , not on disability, capable of becoming but not currently , no Hx of abuse , post-graduate educa tion, working at [employer] in , not on disability, capable of becoming but not currently , no Hx of abuse , post-graduate educa tion, working at [employer] in , not on disability, capable of becoming but not currently , no Hx of abuse , post-graduate educa tion, working at [employer] in , not on disability, capable of becoming but not currently , no Hx of abuse , post-graduate educa tion, working at [employer] in , not on disability, capable of becoming but not currently , no Hx of abuse , post-graduate educa tion, working at [employer] in , not on disability, capable of becoming but not currently , no Hx of abuse , post-graduate educa tion, working at [employer] in , not on disability, capable of becoming but not currently , no Hx of abuse Problems Problem Type SNOMED Code ICD Code Onset Dates Problem Status W/U Status Risk Notes Problem Hypothyroid (38627524) Hypothyroid (E03.9) Active confirmed Problem 51681239 Vitamin D deficiency (E55.9) Active confirmed Problem 511118440 History of anemi a (Z86.2) Active confirmed Problem 575000116 Lumbar spondylos is (M47.816) Active confirmed Problem 67691570 Stress (F43.9) Active confirmed Problem 35847150 Chronic fatigue (R53.82) Active confirmed Problem 23898214 DDD (degenerativ e disc disease), lumbar (M51.36) Active confirmed Problem 73204640 Hypothyroidism, unspecified type (E03.9) Active confirmed Problem Sacroiliitis (70015959) Sacroiliitis (M46.1) Active confirmed Problem Laboratory test result abnormal (253841648) Abnormal laboratory test (R89.9) Active confirmed Problem 424104275 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) Active confirmed Vital Signs Heart Rate 53 /min 02/12/2024 Temperature 97.6 degrees Fahrenheit 05/21/2024 Blood pressure diastolic 78 mm Hg 05/21/2024 Oximetry 99 % 02/12/2024 Height 65 in 05/21/2024 Blood pressure systolic 118 mm Hg 05/21/2024 Encounters Encounter Location Date Provider Diagnosis [facility] [address] [place] [address], [place] [address] 05/21/2024 LORENZA Espositoa [address] [facility] [address] [place] [address] 09/24[facility] [address] [facility] [address] [place] [address] 02/12/2024 LORENZA GARCIA Iliotibial band syndrome of right side M76.31 ; DDD (degenerative disc disease), lumbar M51.36 ; Myalgia, other site M79.18 ; Muscle spasm M62.838 ; Sacroiliitis M46.1 and Left hip pain M25.552 Oliverio Shay [address] [facility] [address] [place] [address] 03/05/2024 LORENZA GARCIA DDD (degenerative di sc disease), lumbar M51.36 ; Left hip pain M25.552 ; Lumbar pain M54.50 and Lumbar radiculopathy M54.16 Oliverio Espositoa [address] [facility] [address] [place] [address] 03/19/2024 LORENZA GARCIA Lumbar radiculopathy M54.16 ; DDD (degenerative disc disease), lumbar M51.36 and Lumbar pain M54.50 Oliverio Espositoa [address] [facility] [address] [place] [address] 04/30/2024 LORENZA GARCIA DDD (degenerative di sc disease), lumbar M51.36 ; Lumbar pain M54.50 ; Sacroiliitis M46.1 and Lumbar spondylosis M47.816 [facility] [place] [address] [facility] [address] [place] [address] 05/21/2024 LORENZA VIRIDIANA DDD (degenerative di sc disease), lumbar M51.36 ; Lumbar pain M54.50 ; Sacroiliitis M46.1 and Lumbar spondylosis M47.816 [facility] [place] [address] [facility] [address] [place] [address] 05/20/2024 LORENZA [facility] [address] [place] [address] 05/21/2024 LORENZA [facility] [address] [place] [address] 05/24/2024 LORENZA [facility] [place] [address] [facility] [address] [place] [address] 02/26/2024 LORENZA [facility] [place] [address] [facility] [address] [place] [address], [place] [address] 05/31/2024 LORENZA GARCIA Assessments Encounter Date Diagnosis (ICD Code) Assessment Notes Treatment Notes Treatment Clinical Notes Section Notes 02/12/2024 Iliotibial band syndrome of right side (ICD-10 - M76.31) 03/19/2024 Lumbar radiculopathy (ICD-10 - M54.16) -Based on review of patient's history, exam and discussion with the patient a caudal epidural is recommended for their pain and symptoms related to their low back. This type of epidural helps with neurogenic inflammation and pain. This type of epidural can be repeated as needed. 03/19/2024 DDD (degenerative disc disease), lumbar (ICD-10 - M51.36) 03/05/2024 Left hip pain (ICD-10 - M25.552) 03/05/2024 DDD (degenerative disc disease), lumbar (ICD-10 - M51.36) 04/30/2024 DDD (degenerative disc disease), lumbar (ICD-10 - M51.36) 04/30/2024 Lumbar pain (ICD-10 - M54.50) 05/21/2024 DDD (degenerative disc disease), lumbar (ICD-10 - M51.36) Treatment options discussed with the patient and all of their questions were answered at this time. Based on review of their response to previous treatments, exam and discussion with the patient, lumbar PRP is recommended and performed today Reviewed pre-procedure verification with the patient. Patient has taken pre-procedure medications to help with discomfort during the procedure and has a helper/driver present. PRP product was verified with the patient. Patient is recommended to start formal physical therapy in one week. Patient was given post procedure instructions and protocol to follow post procedure. Reviewed handout in detail with patient. Patient advised to call if they have any questions 05/21/2024 Lumbar pain (ICD-10 - M54.50) 04/30/2024 Sacroiliitis (ICD-10 - M46.1) 03/05/2024 Lumbar pain (ICD-10 - M54.50) 03/19/2024 Lumbar pain (ICD-10 - M54.50) 02/12/2024 DDD (degenerative disc disease), lumbar (ICD-10 - M51.36) 02/12/2024 Myalgia, other site (ICD-10 - M79.18) 03/05/2024 Lumbar radiculopathy (ICD-10 - M54.16) -Based on review of patient's history, exam and discussion with the patient a caudal epidural is recommended for their pain and symptoms related to their low back. This type of epidural helps with neurogenic inflammation and pain. This type of epidural can be repeated as needed. 02/12/2024 Muscle spasm (ICD-10 - M62.838) 04/30/2024 Lumbar spondylosis (ICD-10 - M47.816) 05/21/2024 Sacroiliitis (ICD-10 - M46.1) 05/21/2024 Lumbar spondylosis (ICD-10 - M47.816) Patient was recommended to start taking BPC-157 to aid in muscle, tendons, cartilage, and bone growth. As well as in gut healing and neuromuscular improvements. Patient elected to take the peptide today. Patient was instructed to take two capsules a day for 1 week after PRP procedure, then decrease to one capsule a day until complete 02/12/2024 Sacroiliitis (ICD-10 - M46.1) 02/12/2024 Left hip pain (ICD-10 - M25.552) 10/29/2023 Other Nutritional Mye rs cocktail IV therapy was performed today. Orders were received from provider previously. Consent was obtained. Allergies, medications and IV intake paperwork has been reviewed. No noted contraindications are present. Prior to infusion IV medications were drawn up under sterile technique. Vital signs were checked before and after infusion and noted above. IV was placed without complications using sterile technique. IV was infused according to guidelines over 25-40 minutes. Patient tolerated infusion without complications. See scanned document for further details. Site of injection included left/right anticubital using a g catheter, catheter tip ok on removal. IV was administered by (NAME). Orders for IV Bergeron Cocktail infusion included:1. Magnesium chloride: 200mg/ml- 5cc (1000 mg)2. Calcium chloride: 100mg/ml- 1cc (100 mg)3. Selenium: 200mcg/mL- 1cc (100 mcg)4. Pyridoxine: 100mg/ml- 2cc (200 mg)5. Dexpanthenol: 250mg/ml- 2cc (500 mg)6. Hydroxycobalamin: 2mg/ml- 1cc (2 mg)7. Vitamin B complex: 2cc8. Ascorbic acid: 9. Sterile water: 250ccFinal osmolarity= 229.819 mOsm/LInfusion rate: 25-40 minutes- 6-8 mL/min 05/21/2024 Other Patient's blood was processed today using 2 [place] PRP kits, LOT #: [id number] EXP: 08/27/2025 AND LOT: [id number] EXP: 07-22-2025. During the processing, the patient produced an average of 30cc of plasma per vial after centrifuge Blood draw, lab processing and documentation were performed by Sylvia Morgan CMA, under the direction and supervision of Lorenza Garcia MD. 09/24/2023 Cuong Padilla's IV therapy was performed today. Orders were received from provider previously. Consent was obtained. Allergies, medications and IV intake paperwork has been reviewed. No noted contraindications are present. Prior to infusion IV medications were drawn up under sterile technique. IV was placed without complications using sterile technique. IV was infused according to guidelines over 50-60 minutes. Patient tolerated infusion without complications. See scanned document for further details. Site of injection included left anticubital vein using a 22g catheter, catheter tip ok on removal. IV was administered by Gomez Rodriguez PA-C. Orders for Immunity IV included: 1. Selenium: 200mcg/mL- 1cc (200 mcg) 2. Calcium chloride 100mg/ml - 1cc 3. Magnesium chloride: 200mg/ml- 5cc 4. Dexpanthenol: 250mg/ml- 2cc (500 mg) 5. Pyridoxine: 100mg/ml- 2cc (200 mg) 6. Vitamin B complex: 2cc 7. Hydroxycobalamin: 2mg/ml- 1cc (2 mg) 8. Ascorbic acid: 500mg/ml - 5cc 9. Sterile water: 250 mL Final osmolarity= 229.819 mOsm/L Infusion rate: 50-60 minutes- 4-6 ml/min 02/12/2024 Other After reviewing patients history, performing the exam, reviewing imaging, and discussing treatment options potential risks, benefits and alternatives including monitoring, therapy, medications, injections, and surgery, the plan of care is as follows: - Based on the patient's pain in the low back, SI joints and left proximal hip an MRI of the pelvis is recommended and ordered to help determine the underlying pathology of the pain and guide further treatment recommendations. - Continue chiropractic adjustments. - Continue with PT/HEP. Gradually increase activity/resistance as tolerated and back off if certain activities are increasing pain. - Continue using heat as first line treatment for pain; still avoid NSAIDs if possible. - Phone or in person follow-up after the MRI or earlier PRN. - All questions answered to patients satisfaction. - Contact the clinic with any questions or concerns. 8 minutes was spent reviewing the patients History before todays appointment. 25 minutes was spent face to face with the patient today where I performed the examination and reviewed the treatment options listed above. 8 minutes were spent in charting and documenting the patients visit following todays appointment (This does not include any time spent documenting outside of the day of the appointment). A total of 41 minutes were spent on this patients care today 03/05/2024 Other After reviewing patients history, performing the exam, reviewing imaging (pelvic/SI MRI independently reviewed with the patient today), and discussing treatment options potential risks, benefits and alternatives including monitoring, therapy, medications, injections, and surgery, the plan of care is as follows: - Action item to request PT records. - Return for caudal epidural injection. - Consider AK epidural in the future if pain relief is not long enough with the caudal. Consider Lumbar PRP if pain relief is insufficient with the caudal. - Continue with PT/HEP. Gradually increase activity/resistance as tolerated and back off if certain activities are increasing pain. - Continue using heat as first line treatment for pain; still avoid NSAIDs if possible. - All questions answered to patients satisfaction. - Contact the clinic with any questions or concerns. Permission verbally granted by patient for Phone/TeleHealt h visit today Start: 922 Stop: 934 18 minutes was spent reviewing the patients MRI and History before todays appointment. 12 minutes was spent speaking with the patient today where I obtained an updated history and reviewed the treatment options listed above. 9 minutes were spent in charting and documenting the patients visit following todays appointment (This does not include any time spent documenting outside of the day of the appointment). A total of 39 minutes were spent on this patients care today 03/19/2024 Other 1)Patient instructed to not swim today or soak in a bath tub. 2)Set up a phone f/up within or around 1 month. 3)Any other questions or problems please give us a call. 04/30/2024 Other After reviewing patients history, reviewing imaging (Prior and most recent MRI independently reviewed with the patient today), and discussing treatment options potential risks, benefits and alternatives including monitoring, therapy, medications, injections, and surgery, the plan of care is as follows: - Discussed SI joint IA vs lumbar PRP and patient elected to proceed with PRP. She would like to get this done in May or June. - Continue with PT/HEP. Gradually increase activity/resistance as tolerated and back off if certain activities are increasing pain. - Continue using heat as first line treatment for pain; still avoid NSAIDs if possible. - All questions answered to patients satisfaction. - Contact the clinic with any questions or concerns. Permission verbally granted by patient for Phone/TeleHealt h visit today Start: 1035 Stop: 1103 5 minutes was spent reviewing the patients History before todays appointment. 28 minutes was spent speaking with the patient today where I obtained an updated history and reviewed the treatment options listed above. 5 minutes were spent in charting and documenting the patients visit following todays appointment (This does not include any time spent documenting outside of the day of the appointment). A total of 38 minutes were spent on this patients care today 05/21/2024 Other Patient's blood was processed today following HART protocol and with the use of 2 APEX Kit(s) Plan Of Treatment Pending Test Test Name Order Date Pelvis WO (Bone) 02/12/2024 Future Test Test Name Order Date IRON, TIBC AND FERRITIN PANEL 11/05/2023 COMPREHENSIVE METABOLIC PANEL 11/05/2023 CBC (H/H, RBC, INDICES, WBC, PLT) 2023 THYROID PEROXIDASE ANTIBODIES 11/05/2023 T4, FREE 11/05/2023 TSH 11/05/2023 T3, FREE 11/05/2023 QUESTASSURED 25-OH VIT D, (D2,D3), LC/MS /MS 11/05/2023 IODINE, SERUM/PLASMA 11/05/2023 VITAMIN B6 11/05/2023 T3 REVERSE, LC/MS/MS 11/05/2023 Insurance Providers Payer Name Payer Address Payer Phone Subscriber Number Group Number Insured Name Patient Relationship to Insured Coverage Start Date Coverage End Date [facility] [employer] [address] [address] [place], [place] [id number] LUIS SIMMONS Self - patient is the insured 1 Medications Administered Medication Instructions Date of Administration Dosage Notes IM Thyroid Boost 09/13/2022 3.25 mg Reccomme nded she get intramuscular injection of Mineral Blend 2ml, Betty Complex 1ml, Lidocaine .25ml, Total injection 3.25ml Medical (General) History Medical History History ICD Code chronic low back pain hypothyroid
== END 2024-08-30 14:07 | disposition home or self-care (01) ==
LOC: MAMMO 14:07
PROVIDERS: PCP Family Medicine; Visit Provider Registered Nurse
DX: Z12.31 Encounter for screening mammogram for malignant neoplasm of breast (principal); R92.333 Mammographic heterogeneous density, bilateral breasts; N63.10 Unspecified lump in the right breast, unspecified quadrant
CPT/HCPCS: 77063; 77067

== ENCOUNTER 2024-09-17 08:35 | Outpatient (CLI) | payer BC, SELFPAY ==
--- NOTE | 2024-09-17 08:45 | CRLHL7_ITS ---
For Patients: As a result of the Cures Act, medical imaging exams and procedure reports are released immediately into your electronic medical record. You may view this report before your referring provider. If you have questions, please contact your health care provider. DIGITAL DIAGNOSTIC RIGHT MAMMOGRAM USING TOMOSYNTHESIS AND COMPUTER-AIDED DETECTION RIGHT BREAST ULTRASOUND CLINICAL HISTORY: RIGHT breast mass/asymmetry. COMPARISON: 08/30/2024, 11/27/2022. TECHNIQUE: Digital RIGHT mammogram in two projections. Tomosynthesis was used in this interpretation. Real-time ultrasound imaging of RIGHT breast with imaging documentation. BREAST COMPOSITION: The breasts are heterogeneously dense, which may obscure small masses. FINDINGS: 3D spot compression CC/MLO RIGHT breast mammogram images submitted. Decreased conspicuity of asymmetric density RIGHT breast. No architectural distortion or suspicious calcifications. Targeted RIGHT breast ultrasound performed at 9 o`clock 1 cm from the nipple. Simple anechoic cyst is present measuring 6 x 4 x 5 mm. No solid component. IMPRESSION: Simple cyst RIGHT breast 9 o`clock 1 cm from the nipple measuring 6 x 4 x 5 mm. No suspicious findings. RECOMMENDATIONS: Routine screening mammography. A lay language report of this examination will be provided to the patient. BI-RADS Category 2: Benign Dictated by Cuco Martinez MD @ 09/17/2024 9:41:46 AM jj/Dictated by: Cuco Martinez MD @ 09/17/2024 9:41:00 AM (Electronically Signed)
--- NOTE | 2024-09-17 09:15 | CRLHL7_ITS ---
For Patients: As a result of the Cures Act, medical imaging exams and procedure reports are released immediately into your electronic medical record. You may view this report before your referring provider. If you have questions, please contact your health care provider. SEE DIGITAL DIAGNOSTIC RIGHT MAMMOGRAM PERFORMED SAME DAY CRL:panfilo whittaker/Dictated by: Cuco Martinez MD @ 09/17/2024 9:41:00 AM (Electronically Signed)
== END 2024-09-17 08:36 | disposition home or self-care (01) ==
LOC: MAMMO 08:35
PROVIDERS: PCP Family Medicine; Visit Provider Registered Nurse
DX: N63.10 Unspecified lump in the right breast, unspecified quadrant (principal); N60.01 Solitary cyst of right breast; R92.8 Other abnormal and inconclusive findings on diagnostic imaging of breast
CPT/HCPCS: 76642; 77065; G0279